=== PATIENT | male | born 1995 | race Caucasian/White ===

== ENCOUNTER 2018-03-17 19:54 | Emergency (ER) | payer OTHER ==
[2018-03-17 20:10] VITALS: BP 133/77
[2018-03-17] MEDS ORDERED: HYDROcod/ACETAM 5/325 MG TABLET PO STA (20:22)
--- NOTE | 2018-03-17 20:24 | ED Physician Documentation ---
PD HPI UPPER EXT INJURY - Stated complaint Stated Complaint: BILATE ELBOW INJURY - Chief complaint Chief Complaint: Ext Problem - History obtained from History obtained from: Patient, Friend - History of Present Illness Location: Other (He was at a concert 2 days ago and fell down an incline onto outstretched arms bilaterally. He complains of left wrist and bilateral elbow pain. No other injuries.) Review of Systems Constitutional: denies: Fever, Chills Cardiac: reports: Reviewed and negative Respiratory: reports: Reviewed and negative : reports: Reviewed and negative PD PAST MEDICAL HISTORY - Present Medications Home Medications: Ambulatory Orders Medication Instructions Recorded Confirmed Acetaminophen [Tylenol] 650 mg IA PRN 03/17/18 HYDROcod/ACETAM 5/325 [[place] 5/325] 1 - 2 ea PO Q6H PRN #15 tablet 03/17/18 - Allergies Allergies/Adverse Reactions: Allergies Allergy/AdvReac Type Severity Reaction Status Date / Time No Known Drug Allergies Allergy Verified 03/17/18 20:09 PD ED PE NORMAL - Vitals Vital signs reviewed: Yes - General General: Alert and oriented X 3, No acute distress - HEENT HEENT: PERRL, EOMI - Neck Neck: Supple, no meningeal sign, No bony TTP - Cardiac Cardiac: RRR, No murmur - Respiratory Respiratory: No respiratory distress, Clear bilaterally - Abdomen Abdomen: Non tender, Non distended - Extremities Extremities: Other (He is tender over both radial heads, right greater than left without supracondylar tenderness. There is no tenderness of the left elbow per se but he is significantly limited range of motion in extension.) - Neuro Neuro: Alert and oriented X 3, Normal speech Results - Vitals Vitals: Vital Signs - 24 hr 03/17/18 20:07 Temperature 36.8 C Heart Rate 81 Respiratory 16 Rate Blood Pressure 133/77 H O2 Saturation 100 - Rads (name of study) Left wrist x-ray Radiology: EMP read contemporaneously (Negative) X-rays of both elbows Radiology: EMP read contemporaneously (Bilateral radial head fractures) PD MEDICAL DECISION MAKING - Sepsis Event Vital Signs: Vital Signs - 24 hr 03/17/18 20:07 Temperature 36.8 C Heart Rate 81 Respiratory 16 Rate Blood Pressure 133/77 H O2 Saturation 100 Departure - Departure Disposition: 01 Home, Self Care Clinical Impression: Left radial head fracture Qualifiers: Encounter type: initial encounter Fracture type: closed Fracture alignment: nondisplaced Qualified Code(s): S52.125A - Nondisplaced fracture of head of left radius, initial encounter for closed fracture Right radial head fracture Qualifiers: Encounter type: initial encounter Fracture type: closed Fracture alignment: nondisplaced Qualified Code(s): S52.124A - Nondisplaced fracture of head of right radius, initial encounter for closed fracture Left wrist sprain Qualifiers: Encounter type: initial encounter Qualified Code(s): S63.502A - Unspecified sprain of left wrist, initial encounter Condition: Good Record reviewed to determine appropriate education?: Yes Instructions: ED Fx Radial Head Prescriptions: HYDROcod/ACETAM 5/325 [[place] 5/325] 1 - 2 ea PO Q6H PRN #15 tablet PRN Reason: Pain Comments: Go to the orthopedics desk at the [facility] tomorrow with a copy of the x- rays on CD. Return if worsening. Keep the sling was on until you are told otherwise by the orthopedic surgeon on [place]. Forms: Activity restrictions
--- NOTE | 2018-03-17 21:23 | XRAY Report ---
Procedure Date: 03/17/2018 Accession Number: [id number] / [id number] Procedure: XR - Wrist 4 View LT CPT Code: FULL RESULT: EXAM: LEFT WRIST RADIOGRAPHY EXAM DATE: 03/17/2018 08:52 PM. CLINICAL HISTORY: Left wrist pain after fall 3 days ago COMPARISON: None. TECHNIQUE: 4 views. FINDINGS: Bones: Normal. No fractures or bone lesions. Joints: Normal. No subluxations. Soft Tissues: Normal. No soft tissue swelling. IMPRESSION: Normal wrist radiography. [facility]
--- NOTE | 2018-03-17 21:26 | XRAY Report ---
Procedure Date: 03/17/2018 Accession Number: [id number] / [id number] Procedure: XR - Elbow 3 View BILAT CPT Code: FULL RESULT: EXAM: 1. Right Elbow Radiography 2. Left Elbow Radiography EXAM DATE: 03/17/2018 08:52 PM. CLINICAL HISTORY: Bilateral elbow pain after fall 3 days ago. COMPARISON: None. TECHNIQUE: 3 views each elbow. FINDINGS: Right: Bones: Non-displaced intra-articular radial head fracture. Joints: Normal alignment. An elbow effusion is present. Soft Tissues: Unremarkable. Left: Bones: Minimally impacted intra-articular fracture of the anterolateral radial head. Joints: Normal alignment. An elbow effusion is present. Soft Tissues: Unremarkable. IMPRESSION: 1. Right elbow: Nondisplaced intra-articular radial head fracture with associated elbow effusion. 2. Left elbow: Minimally impacted intra-articular radial head fracture with associated elbow effusion. [facility]
[2018-03-17] MEDS ORDERED: HYDROcod/ACET 5/325 Prepack 4 PO STA (21:28)
== END 2018-03-17 21:48 | disposition home or self-care (01) ==
LOC: EDSEX → ED 19:54
DX: S52.125A Nondisplaced fracture of head of left radius, initial encounter for closed fracture (principal); S52.124A Nondisplaced fracture of head of right radius, initial encounter for closed fracture; S63.502A Unspecified sprain of left wrist, initial encounter; W17.89XA Other fall from one level to another, initial encounter
CPT/HCPCS: 73080; 73110; 99283; A9270